=== PATIENT | female | born 1990 | race Caucasian/White ===

== ENCOUNTER 2022-02-20 14:31 | Outpatient (REF) | payer OTHER, SELFPAY ==
[2022-02-20 14:57] LABS: COVID-19 Test Positive (Negative); IDNOW Serial# 16C4AD1C
== END 2022-02-20 14:32 | disposition home or self-care (01) ==
LOC: HO.LAB 14:31
PROVIDERS: Visit Provider Internal Medicine
DX: Z20.822 Contact with and (suspected) exposure to COVID-19 (principal)
CPT/HCPCS: 87635; C9803

== ENCOUNTER 2022-02-26 12:40 | Outpatient (REF) | payer OTHER, SELFPAY ==
[2022-02-26 13:13] LABS: COVID-19 Test Positive (Negative)
== END 2022-02-26 12:41 | disposition home or self-care (01) ==
LOC: HO.LAB 12:40
PROVIDERS: Visit Provider Internal Medicine
DX: Z20.822 Contact with and (suspected) exposure to COVID-19 (principal)
CPT/HCPCS: 87635; C9803